=== PATIENT | female | born 1940 ===

== ENCOUNTER 2019-05-04 08:30 | Inpatient (IN) | payer OTHER ==
[~2019-05-04] VITALS: Ht 149.9 cm; Wt 55.8 kg
[2019-05-04] MEDS ORDERED: MOTRIN IB200 M1 PO (10:12)
[2019-05-04] MEDS ORDERED: CYMBALTA20 MG PO (10:12)
[2019-05-04] MEDS ORDERED: CLARITIN10 M2 PO (10:12)
[2019-05-04] MEDS ORDERED: PANADOL MAXIMU500 MG PO (10:12)
[2019-05-04] MEDS ORDERED: VITAMIN C500 M6 PO (10:13)
[2019-05-10] MEDS ORDERED: MOTRIN IB200 MG (10:07)
[2019-05-12] MEDS ORDERED: XARELTO10 MG PO (08:06)
[2019-05-12] MEDS ORDERED: OXYC1TAB9 PO (08:06)
[2019-05-12] MEDS ORDERED: INTEGRA PLUS C1 EACH PO (08:06)
== END 2019-05-12 15:21 | DRG 470 ==
LOC: O/R 05-10 08:08 → SURH 05-10 08:08 → O/R 05-10 08:30 → SURH 05-10 22:54
PROVIDERS: ADMIT Orthopaedic Surgery Sports Medicine
PROC: 0SR90JZ Replacement of Right Hip Joint with Synthetic Substitute, Open Approach (ICD-10-PCS; principal; 2019-05-10 13:15)
DX: M16.11 Unilateral primary osteoarthritis, right hip (principal)

== ENCOUNTER 2019-05-15 01:57 | Inpatient (IN) | payer OTHER ==
[~2019-05-15] VITALS: Ht 147.3 cm; Wt 54.4 kg
[~2019-05-15 01:57] MED LIST: CLARITIN10 M2 PO; CYMBALTA20 MG PO; INTEGRA PLUS C1 EACH PO; MOTRIN IB200 M1 PO; MOTRIN IB200 MG; OXYC1TAB9 PO; PANADOL MAXIMU500 MG PO; VITAMIN C500 M6 PO; XARELTO10 MG PO
[2019-06-08] MEDS ORDERED: METOPROLOL TART50 MG PO (13:53)
[2019-06-08] MEDS ORDERED: COUMADIN3 MG PO (13:53)
[2019-06-08] MEDS ORDERED: FLECAINIDE ACET50 MG PO (13:53)
[2019-06-08] MEDS ORDERED: LORAZEPAM0.5 MG PO (13:54)
== END 2019-06-08 14:46 | DRG 176 ==
LOC: ER 01:57 → MEDJ 17:08
PROVIDERS: ADMIT Internal Medicine
PROC: 4A033R1 Measurement of Arterial Saturation, Peripheral, Percutaneous Approach (ICD-10-PCS; principal; 2019-05-15)
PROC: CB2YYZZ Tomographic (Tomo) Nuclear Medicine Imaging of Respiratory System using Other Radionuclide (ICD-10-PCS; 2019-05-15)
PROC: B54DZZZ Ultrasonography of Bilateral Lower Extremity Veins (ICD-10-PCS; 2019-05-16)
PROC: 4A02XM4 Measurement of Cardiac Total Activity, External Approach (ICD-10-PCS; 2019-05-16)
PROC: B245ZZZ Ultrasonography of Left Heart (ICD-10-PCS; 2019-05-22)
PROC: 30233N1 Transfusion of Nonautologous Red Blood Cells into Peripheral Vein, Percutaneous Approach (ICD-10-PCS; 2019-05-22)
PROC: 4A12XM4 Monitoring of Cardiac Stress, External Approach (ICD-10-PCS; 2019-05-27)
PROC: 3E073KZ Introduction of Other Diagnostic Substance into Coronary Artery, Percutaneous Approach (ICD-10-PCS; 2019-05-27)
DX: I26.99 Other pulmonary embolism without acute cor pulmonale (principal); D62 Acute posthemorrhagic anemia; I47.1 Supraventricular tachycardia; Z96.641 Presence of right artificial hip joint; Z79.01 Long term (current) use of anticoagulants; F41.0 Panic disorder [episodic paroxysmal anxiety]; I87.2 Venous insufficiency (chronic) (peripheral)